=== PATIENT | male | born 1940 | race Caucasian/White ===

== ENCOUNTER 2023-08-13 10:27 | Outpatient (RCR) | payer MEDICARE, SELFPAY ==
[2023-08-13 10:39] LABS: Hematocrit 43.2 % (39.0-52.0); Hemoglobin 12.9 g/dL (13.0-18.0); Mean Corp Hgb Conc. 29.9 g/dL (33.0-37.0); Mean Corpuscular Hgb 19.1 pg (27.0-31.0); Platelet Count 385 10^3/uL (130-400); Red Blood Cell Count 6.75 10^6/uL (4.70-6.10); Red Cell Dist. Width 21.9 % (11.5-14.5); White Blood Cell Count 21.3 10^3/uL (4.8-10.8)
[2023-08-13 13:06] LABS: Absolute Neutrophils -Man Diff 15.5 10^3/uL (1.4-6.5); Band Neutrophils 16 % (0-3); Eosinophils 2 % (0-6); Hypochromasia 1+; Lymphocytes 2 % (20-51); Metamyelocytes 10 % (-); Monocytes 4 % (2-9); Myelocytes 4 % (-); Normal RBC Morphology No; Nucleated Red Blood Cells 4 (-); Platelets Checked Yes; Polychromasia 1+; Promyelocytes 2 % (-); Segmented Neutrophils 57 % (42-75); Toxic Granulation 2+
[2023-08-13 13:07] LABS: Anisocytosis 2+; Ovalocytes 2+
[2023-08-13 13:08] LABS: Acanthocytes FEW; Spherocytes FEW; Total Cells Counted 100
== END 2023-09-10 23:59 | disposition home or self-care (01) ==
LOC: OID 10:27
PROVIDERS: ATTENDING PHYSICIAN Internal Medicine Hematology & Oncology; FAMILY PHYSICIAN Internal Medicine Geriatric Medicine
DX: D45 Polycythemia vera (principal)
CPT/HCPCS: 36415; 85025

== ENCOUNTER → 2023-09-12 12:13 | Outpatient (REF) | payer MEDICARE, SELFPAY ==
[2023-09-12 13:02] LABS: Hematocrit 43.5 % (39.0-52.0); Hemoglobin 12.9 g/dL (13.0-18.0); Mean Corp Hgb Conc. 29.7 g/dL (33.0-37.0); Mean Corpuscular Hgb 19.5 pg (27.0-31.0); Mean Corpuscular Volume 65.9 fL (80.0-94.0); Mean Platelet Volume 9.3 fL (7.4-10.4); Platelet Count 413 10^3/uL (130-400); Red Cell Dist. Width 24.1 % (11.5-14.5); White Blood Cell Count 22.6 10^3/uL (4.8-10.8)
[2023-09-12 13:15] LABS: Blood Urea Nitrogen 23 mg/dl (9-20); Calcium 8.9 mg/dl (8.4-10.2); Carbon Dioxide 24 mmol/L (22-30); Chloride 103 mmol/L (98-107); Glucose 209 mg/dl (70-99); Potassium 4.6 mmol/L (3.5-5.1); Sodium 137 mmol/L (135-145); eGFR > 60.00
[2023-09-12 13:24] LABS: Absolute Neutrophils -Man Diff 19.6 10^3/uL (1.4-6.5); Band Neutrophils 7 % (0-3); Eosinophils 1 % (0-6); Lymphocytes 1 % (20-51); Metamyelocytes 9 % (-); Monocytes 1 % (2-9); Myelocytes 1 % (-); Normal RBC Morphology No; Nucleated Red Blood Cells 3 (-); Platelets Checked Yes; Segmented Neutrophils 80 % (42-75)
[2023-09-12 13:26] LABS: Anisocytosis 1+; Ovalocytes 1+; Polychromasia 1+; Tear Drop Red Blood Cells 1+; Total Cells Counted 100
[2023-09-12 14:02] LABS: Erythrocyte Sed Rate 8 mm/hour (0-20)
[2023-09-12 14:06] LABS: Testosterone, Total < 4.9 ng/dl (72-623)
== END ==
LOC: REG 12:13
PROVIDERS: ATTENDING PHYSICIAN Specialist; FAMILY PHYSICIAN Internal Medicine Geriatric Medicine
DX: C61 Malignant neoplasm of prostate (principal); N20.0 Calculus of kidney; N13.5 Crossing vessel and stricture of ureter without hydronephrosis; R19.7 Diarrhea, unspecified; D72.829 Elevated white blood cell count, unspecified
CPT/HCPCS: 36415; 80048; 84403; 85025; 85652; 86140

== ENCOUNTER → 2023-09-15 12:01 | Outpatient (REF) | payer MEDICARE, SELFPAY ==
[2023-09-18 21:29] LABS: Calprotectin, Fecal 242 ug/g (<=49)
== END ==
LOC: REG 12:01
PROVIDERS: ATTENDING PHYSICIAN Nurse Practitioner Family
DX: R19.7 Diarrhea, unspecified (principal); D72.829 Elevated white blood cell count, unspecified
CPT/HCPCS: 83993

== ENCOUNTER 2023-09-25 10:17 | Outpatient (RCR) | payer MEDICARE, SELFPAY ==
[2023-09-25 10:36] LABS: Hematocrit 46.1 % (39.0-52.0); Hemoglobin 13.6 g/dL (13.0-18.0); Mean Corp Hgb Conc. 29.5 g/dL (33.0-37.0); Mean Corpuscular Hgb 19.4 pg (27.0-31.0); Mean Corpuscular Volume 65.7 fL (80.0-94.0); Mean Platelet Volume 8.5 fL (7.4-10.4); Platelet Count 382 10^3/uL (130-400); Red Blood Cell Count 7.02 10^6/uL (4.70-6.10); Red Cell Dist. Width 23.7 % (11.5-14.5)
[2023-09-25 11:00] VITALS: BP 170/69
[2023-09-25 11:40] VITALS: BP 147/61
[2023-09-25 11:44] VITALS: BP 147/61
[2023-09-25 11:45] VITALS: BP 122/59
[2023-09-25 12:00] LABS: ALT (SGPT) 31 U/L (0-50); AST (SGOT) 42 U/L (17-59); Albumin 4.3 g/dl (3.5-5.0); Alkaline Phosphatase 173 U/L (38-126); Blood Urea Nitrogen 22 mg/dl (9-20); Calcium 9.1 mg/dl (8.4-10.2); Carbon Dioxide 24 mmol/L (22-30); Chloride 104 mmol/L (98-107); Glucose 222 mg/dl (70-99); HDL Cholesterol 29 mg/dl; LDL Cholesterol, Calculated 62 mg/dl; Potassium 4.2 mmol/L (3.5-5.1); Sodium 136 mmol/L (135-145); Total Bilirubin 0.8 mg/dl (0.2-1.3); Total Cholesterol 153 mg/dl (50-199); Total Protein 6.6 g/dl (6.3-8.2); Triglyceride 311 mg/dl (10-149); Very Low Density Lipoprotein 62 mg/dl (0-30); eGFR > 60.00
[2023-09-25 12:12] LABS: Absolute Neutrophils -Man Diff 15.1 10^3/uL (1.4-6.5); Atypical Lymphocytes 3 %; Band Neutrophils 9 % (0-3); Eosinophils 1 % (0-6); Lymphocytes 1 % (20-51); Metamyelocytes 4 % (-); Monocytes 1 % (2-9); Myelocytes 1 % (-); Normal RBC Morphology No; Nucleated Red Blood Cells 1 (-); Platelets Checked Yes; Segmented Neutrophils 80 % (42-75)
[2023-09-25 12:13] LABS: Acanthocytes 1+; Anisocytosis 2+; Hypochromasia 1+; Ovalocytes 2+; Polychromasia 1+; Tear Drop Red Blood Cells 1+
[2023-09-25 12:14] LABS: Total Cells Counted 100
[2023-09-25 12:15] LABS: Vitamin D, 25-OH*** 70.8 ng/mL (30-80)
== END 2023-09-26 11:11 | disposition home or self-care (01) ==
LOC: OID 10:17
PROVIDERS: ATTENDING PHYSICIAN Internal Medicine Hematology & Oncology; FAMILY PHYSICIAN Internal Medicine Geriatric Medicine
DX: D45 Polycythemia vera (principal)
CPT/HCPCS: 36415; 80053; 80061; 82306; 83036; 85025; 99195

== ENCOUNTER → 2023-10-30 06:23 | Day surgery (SDC) | payer MEDICARE, SELFPAY ==
[2023-10-30 07:14] LABS: Glucose - Point of Care 199 mg/dl (70-99)
== END ==
LOC: GI 06:23
PROVIDERS: ATTENDING PHYSICIAN Internal Medicine Gastroenterology
DX: K57.30 Diverticulosis of large intestine without perforation or abscess without bleeding (principal); K62.7 Radiation proctitis; R19.4 Change in bowel habit; R76.8 Other specified abnormal immunological findings in serum; Z92.3 Personal history of irradiation; Z85.46 Personal history of malignant neoplasm of prostate; Y84.2 Radiological procedure and radiotherapy as the cause of abnormal reaction of the patient, or of later complication, without mention of misadventure at the time of the procedure
CPT/HCPCS: 45380; 88305; 82962

== ENCOUNTER 2023-11-06 10:29 | Outpatient (RCR) | payer MEDICARE, SELFPAY ==
[2023-11-06 10:48] LABS: Hemoglobin 12.4 g/dL (13.0-18.0); Mean Corp Hgb Conc. 30.2 g/dL (33.0-37.0); Mean Corpuscular Hgb 19.4 pg (27.0-31.0); Mean Corpuscular Volume 64.2 fL (80.0-94.0); Platelet Count 304 10^3/uL (130-400); Red Blood Cell Count 6.39 10^6/uL (4.70-6.10); Red Cell Dist. Width 22.6 % (11.5-14.5); White Blood Cell Count 18.8 10^3/uL (4.8-10.8)
[2023-11-06 11:48] LABS: Blood Urea Nitrogen 30 mg/dl (9-20); Carbon Dioxide 24 mmol/L (22-30); Chloride 99 mmol/L (98-107); Glucose 340 mg/dl (70-99); Potassium 4.5 mmol/L (3.5-5.1); Sodium 135 mmol/L (135-145); eGFR > 60.00
[2023-11-06 12:35] LABS: Testosterone, Total 5.8 ng/dl (72-623)
[2023-11-06 13:11] LABS: Absolute Neutrophils -Man Diff 15.9 10^3/uL (1.4-6.5); Band Neutrophils 6 % (0-3); Eosinophils 1 % (0-6); Lymphocytes 7 % (20-51); Metamyelocytes 2 % (-); Monocytes 2 % (2-9); Myelocytes 3 % (-); Segmented Neutrophils 79 % (42-75)
[2023-11-06 13:12] LABS: Normal RBC Morphology Yes; Platelets Checked Yes; Total Cells Counted 100
== END 2023-11-09 23:59 | disposition home or self-care (01) ==
LOC: OID 10:29
PROVIDERS: Specialist; ATTENDING PHYSICIAN Internal Medicine Hematology & Oncology; FAMILY PHYSICIAN Internal Medicine Geriatric Medicine
DX: D45 Polycythemia vera (principal)
CPT/HCPCS: 36415; 80048; 84403; 85025

== ENCOUNTER → 2023-11-28 11:58 | Outpatient (REF) | payer MEDICARE, SELFPAY | LOC: RAD 11:58 | PROVIDERS: ATTENDING PHYSICIAN Specialist; FAMILY PHYSICIAN Internal Medicine Geriatric Medicine | DX: N20.0 Calculus of kidney (principal); N13.5 Crossing vessel and stricture of ureter without hydronephrosis | CPT/HCPCS: 74018 ==

== ENCOUNTER 2023-12-18 10:17 | Outpatient (RCR) | payer MEDICARE, SELFPAY ==
[2023-12-18 10:35] LABS: % Basophils 5.5 % (0-2); % Eosinophils 1.1 % (0-6); % Immature Granulocytes 14.7 % (0-0.5); % Lymphocytes 4.4 % (20.5-51.1); % Monocytes 4.5 % (1.7-9.3); % Neutrophils 69.8 % (42.2-75.2); Absolute Basophils 1.3 10^3/uL (0-0.2); Absolute Eosinophils 0.3 10^3/uL (0-0.7); Absolute Immature Granulocytes 3.6 10^3/uL (0-0.05); Absolute Lymphocytes 1.1 10^3/uL (1.2-3.4); Absolute Monocytes 1.1 10^3/uL (0.1-0.6); Absolute Neutrophils 17.1 10^3/uL (1.4-6.5); Hematocrit 42.3 % (39.0-52.0); Hemoglobin 12.8 g/dL (13.0-18.0); Mean Corp Hgb Conc. 30.3 g/dL (33.0-37.0); Mean Corpuscular Hgb 19.2 pg (27.0-31.0); Mean Corpuscular Volume 63.3 fL (80.0-94.0); Platelet Count 361 10^3/uL (130-400); Red Blood Cell Count 6.68 10^6/uL (4.70-6.10); Red Cell Dist. Width 22.6 % (11.5-14.5); White Blood Cell Count 24.4 10^3/uL (4.8-10.8)
[2023-12-18 11:06] LABS: ALT (SGPT) 19 U/L (0-50); AST (SGOT) 35 U/L (17-59); Albumin 4.3 g/dl (3.5-5.0); Alkaline Phosphatase 142 U/L (38-126); Blood Urea Nitrogen 37 mg/dl (9-20); Calcium 9.5 mg/dl (8.4-10.2); Carbon Dioxide 23 mmol/L (22-30); Chloride 107 mmol/L (98-107); Glucose 204 mg/dl (70-99); HDL Cholesterol 28 mg/dl; LDL Cholesterol, Calculated 44 mg/dl; Potassium 4.4 mmol/L (3.5-5.1); Sodium 138 mmol/L (135-145); Total Bilirubin 0.6 mg/dl (0.2-1.3); Total Cholesterol 129 mg/dl (50-199); Total Protein 6.7 g/dl (6.3-8.2); Triglyceride 287 mg/dl (10-149); Very Low Density Lipoprotein 57 mg/dl (0-30); eGFR > 60.00
[2023-12-18 11:17] LABS: Protein/creatinine Ratio 1.8; Urine Protein 90 mg/dl
[2023-12-18 13:20] LABS: Glycohemoglobin (HgbA1c) 8.2 % (4.0-5.6)
== END 2024-01-09 23:59 | disposition home or self-care (01) ==
LOC: OID 10:17
PROVIDERS: ATTENDING PHYSICIAN Internal Medicine Hematology & Oncology; OTHER PHYSICIAN Internal Medicine Geriatric Medicine
DX: D45 Polycythemia vera (principal)
CPT/HCPCS: 36415; 80053; 80061; 82570; 83036; 84156; 85025

== ENCOUNTER 2024-01-29 10:36 | Outpatient (RCR) | payer MEDICARE, SELFPAY ==
[2024-01-29 10:50] LABS: Hematocrit 45.3 % (39.0-52.0); Hemoglobin 13.4 g/dL (13.0-18.0); Mean Corp Hgb Conc. 29.6 g/dL (33.0-37.0); Mean Corpuscular Hgb 18.8 pg (27.0-31.0); Mean Corpuscular Volume 63.4 fL (80.0-94.0); Platelet Count 349 10^3/uL (130-400); Red Blood Cell Count 7.14 10^6/uL (4.70-6.10); Red Cell Dist. Width 23.5 % (11.5-14.5); White Blood Cell Count 23.4 10^3/uL (4.8-10.8)
[2024-01-29 11:10] VITALS: BP 145/64
[2024-01-29 11:40] VITALS: BP 132/69
[2024-01-29 11:45] VITALS: BP 142/66
[2024-01-29 13:32] LABS: Absolute Neutrophils -Man Diff 19.1 10^3/uL (1.4-6.5); Atypical Lymphocytes 3 %; Band Neutrophils 10 % (0-3); Lymphocytes 5 % (20-51); Metamyelocytes 7 % (-); Monocytes 2 % (2-9); Myelocytes 1 % (-); Normal RBC Morphology No; Nucleated Red Blood Cells 3 (-); Platelets Checked Yes; Segmented Neutrophils 72 % (42-75)
[2024-01-29 13:33] LABS: Anisocytosis 1+; Hypochromasia 1+; Ovalocytes 1+; Polychromasia 1+
[2024-01-29 13:34] LABS: Tear Drop Red Blood Cells 1+; Total Cells Counted 100
== END 2024-01-29 15:26 | disposition home or self-care (01) ==
LOC: OID 10:36
PROVIDERS: ATTENDING PHYSICIAN Internal Medicine Hematology & Oncology; OTHER PHYSICIAN Internal Medicine Geriatric Medicine
DX: D45 Polycythemia vera (principal)
CPT/HCPCS: 36415; 85025; 99195

== ENCOUNTER 2024-03-11 10:25 | Outpatient (RCR) | payer MEDICARE, SELFPAY ==
[2024-03-11 11:07] LABS: % Basophils 5.5 % (0-2); % Eosinophils 0.7 % (0-6); % Immature Granulocytes 12.8 % (0-0.5); % Lymphocytes 3.3 % (20.5-51.1); % Monocytes 5.3 % (1.7-9.3); % Neutrophils 72.4 % (42.2-75.2); Absolute Basophils 1.2 10^3/uL (0-0.2); Absolute Eosinophils 0.1 10^3/uL (0-0.7); Absolute Immature Granulocytes 2.7 10^3/uL (0-0.05); Absolute Lymphocytes 0.7 10^3/uL (1.2-3.4); Absolute Monocytes 1.1 10^3/uL (0.1-0.6); Absolute Neutrophils 15.4 10^3/uL (1.4-6.5); Hematocrit 41.5 % (39.0-52.0); Hemoglobin 12.2 g/dL (13.0-18.0); Mean Corp Hgb Conc. 29.4 g/dL (33.0-37.0); Mean Corpuscular Hgb 18.7 pg (27.0-31.0); Mean Corpuscular Volume 63.7 fL (80.0-94.0); Platelet Count 369 10^3/uL (130-400); Red Blood Cell Count 6.52 10^6/uL (4.70-6.10); Red Cell Dist. Width 24.4 % (11.5-14.5); White Blood Cell Count 21.2 10^3/uL (4.8-10.8)
[2024-03-11 12:03] LABS: Urine Albumin 1+ (Neg - Trace); Urine Bilirubin Negative (Negative); Urine Character Clear (Clear); Urine Color Yellow; Urine Glucose 3+ (Negative); Urine Ketone Negative (Negative); Urine Leukocyte Negative (Negative); Urine Nitrite Negative (Negative); Urine Occult Blood Negative (Negative); Urine Urobilinogen Negative (Neg - 1+)
[2024-03-11 12:37] LABS: Urine Red Blood Cell 0-2 /HPF (0-2); Urine Squamous Cell 0-2 /LPF (Few)
[2024-03-11 12:51] LABS: ALT (SGPT) 21 U/L (0-50); AST (SGOT) 34 U/L (17-59); Albumin 4.2 g/dl (3.5-5.0); Alkaline Phosphatase 137 U/L (38-126); Blood Urea Nitrogen 36 mg/dl (9-20); Calcium 9.1 mg/dl (8.4-10.2); Carbon Dioxide 25 mmol/L (22-30); Chloride 102 mmol/L (98-107); Glucose 180 mg/dl (70-99); HDL Cholesterol 27 mg/dl; LDL Cholesterol, Calculated 61 mg/dl; Potassium 4.6 mmol/L (3.5-5.1); Sodium 136 mmol/L (135-145); Total Bilirubin 0.7 mg/dl (0.2-1.3); Total Cholesterol 146 mg/dl (50-199); Total Protein 6.5 g/dl (6.3-8.2); Triglyceride 290 mg/dl (10-149); Very Low Density Lipoprotein 58 mg/dl (0-30); eGFR > 60.00
[2024-03-11 13:07] LABS: Vitamin D, 25-OH*** 62.3 ng/mL (30-80)
[2024-03-11 13:26] LABS: Glycohemoglobin (HgbA1c) 7.6 % (4.0-5.6)
[2024-03-11 17:54] LABS: Microalbumin, Random Urine 48.6 mg/dl (0.6-1.7); Microalbumin/creatinine Ratio 927.5 mg/g
== END 2024-03-12 09:25 | disposition home or self-care (01) ==
LOC: OID 10:25
PROVIDERS: ATTENDING PHYSICIAN Internal Medicine Hematology & Oncology; OTHER PHYSICIAN Internal Medicine Geriatric Medicine
DX: D45 Polycythemia vera (principal)
CPT/HCPCS: 36415; 80053; 80061; 81003; 81015; 82043; 82306; 82570; 83036; 84681; 85025

== ENCOUNTER 2024-04-21 10:24 | Outpatient (RCR) | payer MEDICARE, SELFPAY ==
[2024-04-21 11:36] LABS: Hematocrit 39.5 % (39.0-52.0); Hemoglobin 11.6 g/dL (13.0-18.0); Mean Corp Hgb Conc. 29.4 g/dL (33.0-37.0); Mean Corpuscular Volume 64.5 fL (80.0-94.0); Mean Platelet Volume 9.2 fL (7.4-10.4); Platelet Count 487 10^3/uL (130-400); Red Blood Cell Count 6.12 10^6/uL (4.70-6.10); Red Cell Dist. Width 25.2 % (11.5-14.5)
[2024-04-21 12:16] LABS: Absolute Neutrophils -Man Diff 17.4 10^3/uL (1.4-6.5); Band Neutrophils 10 % (0-3); Lymphocytes 2 % (20-51); Monocytes 3 % (2-9); Nucleated Red Blood Cells % 1.5 % (-); Segmented Neutrophils 73 % (42-75)
[2024-04-21 12:17] LABS: Anisocytosis 2+; Eosinophils 1 % (0-6); Metamyelocytes 3 % (-); Microcytosis 2+; Myelocytes 7 % (-); Normal RBC Morphology No; Platelets Checked Yes
[2024-04-21 12:18] LABS: Ovalocytes 2+; Tear Drop Red Blood Cells 1+
[2024-04-21 12:20] LABS: Polychromasia 1+; Total Cells Counted 100
== END 2024-05-10 23:59 | disposition home or self-care (01) ==
LOC: OID 10:24
PROVIDERS: ATTENDING PHYSICIAN Internal Medicine Hematology & Oncology; OTHER PHYSICIAN Internal Medicine Geriatric Medicine
DX: D45 Polycythemia vera (principal)
CPT/HCPCS: 36415; 85025

== ENCOUNTER → 2024-04-21 11:18 | Outpatient (REF) | payer MEDICARE, SELFPAY | LOC: RAD 11:18 | PROVIDERS: ATTENDING PHYSICIAN Nurse Practitioner Adult Health; FAMILY PHYSICIAN Internal Medicine Geriatric Medicine | DX: J41.1 Mucopurulent chronic bronchitis (principal) | CPT/HCPCS: 71046 ==

== ENCOUNTER 2024-06-02 10:23 | Outpatient (RCR) | payer MEDICARE, SELFPAY ==
[2024-06-02 10:33] LABS: % Basophils 5.6 % (0-2); % Eosinophils 1.3 % (0-6); % Lymphocytes 4.3 % (20.5-51.1); % Monocytes 6.3 % (1.7-9.3); % Neutrophils 68.5 % (42.2-75.2); Absolute Basophils 1.2 10^3/uL (0-0.2); Absolute Eosinophils 0.3 10^3/uL (0-0.7); Absolute Immature Granulocytes 3.1 10^3/uL (0-0.05); Absolute Lymphocytes 0.9 10^3/uL (1.2-3.4); Absolute Monocytes 1.4 10^3/uL (0.1-0.6); Absolute Neutrophils 14.9 10^3/uL (1.4-6.5); Hematocrit 38.4 % (39.0-52.0); Hemoglobin 11.3 g/dL (13.0-18.0); Mean Corp Hgb Conc. 29.4 g/dL (33.0-37.0); Mean Corpuscular Hgb 18.9 pg (27.0-31.0); Mean Corpuscular Volume 64.1 fL (80.0-94.0); Platelet Count 405 10^3/uL (130-400); Red Blood Cell Count 5.99 10^6/uL (4.70-6.10); Red Cell Dist. Width 23.1 % (11.5-14.5); White Blood Cell Count 21.8 10^3/uL (4.8-10.8)
== END 2024-06-10 23:59 | disposition home or self-care (01) ==
LOC: OID 10:23
PROVIDERS: ATTENDING PHYSICIAN Internal Medicine Hematology & Oncology; OTHER PHYSICIAN Internal Medicine Geriatric Medicine
DX: D45 Polycythemia vera (principal)
CPT/HCPCS: 36415; 85025

== ENCOUNTER 2024-07-15 10:28 | Outpatient (RCR) | payer MEDICARE, SELFPAY ==
[2024-07-15 11:08] LABS: Hematocrit 44.4 % (39.0-52.0); Hemoglobin 12.5 g/dL (13.0-18.0); Mean Corp Hgb Conc. 28.2 g/dL (33.0-37.0); Mean Corpuscular Volume 63.8 fL (80.0-94.0); Platelet Count 498 10^3/uL (130-400); Red Blood Cell Count 6.96 10^6/uL (4.70-6.10); Red Cell Dist. Width 23.5 % (11.5-14.5); White Blood Cell Count 26.3 10^3/uL (4.8-10.8)
[2024-07-15 12:34] LABS: Absolute Neutrophils -Man Diff 22.8 10^3/uL (1.4-6.5); Atypical Lymphocytes 3 %; Band Neutrophils 10 % (0-3); Lymphocytes 4 % (20-51); Metamyelocytes 2 % (-); Monocytes 2 % (2-9); Myelocytes 2 % (-); Normal RBC Morphology No; Nucleated Red Blood Cells 4 (-); Platelets Checked Yes; Segmented Neutrophils 77 % (42-75)
[2024-07-15 12:35] LABS: Anisocytosis 1+; Hypochromasia Slight; Ovalocytes 2+; Polychromasia Slight; Total Cells Counted 100
== END 2024-08-10 23:59 | disposition home or self-care (01) ==
LOC: OID 10:28
PROVIDERS: ATTENDING PHYSICIAN Internal Medicine Hematology & Oncology; OTHER PHYSICIAN Internal Medicine Geriatric Medicine
DX: D45 Polycythemia vera (principal)
CPT/HCPCS: 85025

== ENCOUNTER 2024-08-26 10:29 | Outpatient (RCR) | payer MEDICARE, SELFPAY ==
[2024-08-26 10:52] LABS: % Basophils 5.5 % (0-2); % Eosinophils 1.2 % (0-6); % Immature Granulocytes 15.2 % (0-0.5); % Lymphocytes 4.5 % (20.5-51.1); % Monocytes 6.2 % (1.7-9.3); % Neutrophils 67.4 % (42.2-75.2); Absolute Basophils 1.4 10^3/uL (0-0.2); Absolute Eosinophils 0.3 10^3/uL (0-0.7); Absolute Immature Granulocytes 3.8 10^3/uL (0-0.05); Absolute Lymphocytes 1.1 10^3/uL (1.2-3.4); Absolute Monocytes 1.6 10^3/uL (0.1-0.6); Absolute Neutrophils 16.9 10^3/uL (1.4-6.5); Hematocrit 42.5 % (39.0-52.0); Hemoglobin 12.5 g/dL (13.0-18.0); Mean Corp Hgb Conc. 29.4 g/dL (33.0-37.0); Mean Corpuscular Hgb 18.3 pg (27.0-31.0); Mean Corpuscular Volume 62.3 fL (80.0-94.0); Platelet Count 433 10^3/uL (130-400); Red Blood Cell Count 6.82 10^6/uL (4.70-6.10); Red Cell Dist. Width 24.5 % (11.5-14.5); White Blood Cell Count 25.1 10^3/uL (4.8-10.8)
[2024-08-26 11:18] LABS: Urine Albumin 2+ (Neg - Trace); Urine Bilirubin Negative (Negative); Urine Character Clear (Clear); Urine Color Yellow; Urine Glucose 3+ (Negative); Urine Ketone Negative (Negative); Urine Leukocyte Trace (Negative); Urine Nitrite Negative (Negative); Urine Occult Blood 2+ (Negative); Urine Specific Gravity 1.015 (<1.030); Urine Urobilinogen Negative (Neg - 1+)
[2024-08-26 11:30] LABS: ALT (SGPT) 20 U/L (0-50); AST (SGOT) 35 U/L (17-59); Albumin 4.3 g/dl (3.5-5.0); Alkaline Phosphatase 187 U/L (38-126); Blood Urea Nitrogen 42 mg/dl (9-20); Calcium 9.2 mg/dl (8.4-10.2); Carbon Dioxide 21 mmol/L (22-30); Chloride 105 mmol/L (98-107); Glucose 300 mg/dl (70-99); HDL Cholesterol 27 mg/dl; LDL Cholesterol, Calculated 64 mg/dl; Potassium 5.1 mmol/L (3.5-5.1); Sodium 138 mmol/L (135-145); Total Bilirubin 0.6 mg/dl (0.2-1.3); Total Cholesterol 167 mg/dl (50-199); Total Protein 6.6 g/dl (6.3-8.2); Triglyceride 383 mg/dl (10-149); Very Low Density Lipoprotein 76 mg/dl (0-30); eGFR > 60.00
[2024-08-26 11:47] LABS: Vitamin D, 25-OH*** 60.8 ng/mL (30-80)
[2024-08-26 11:51] LABS: Glycohemoglobin (HgbA1c) 6.9 % (4.0-5.6); Urine Mucus Few
[2024-08-26 11:53] LABS: Urine Squamous Cell 0-2 /LPF (Few)
[2024-08-26 11:54] LABS: Urine Amorphous Seen
[2024-08-26 11:55] LABS: Urine Red Blood Cell 16-20 /HPF (0-2)
[2024-08-26 11:56] LABS: Urine Granular Cast 0-2 /LPF (0)
[2024-08-26 14:49] LABS: Microalbumin, Random Urine > 57.0 mg/dl (0.6-1.7); Microalbumin/creatinine Ratio 1328.7 mg/g
== END 2024-09-10 23:59 | disposition home or self-care (01) ==
LOC: OID 10:29
PROVIDERS: ATTENDING PHYSICIAN Internal Medicine Hematology & Oncology; OTHER PHYSICIAN Internal Medicine Geriatric Medicine
DX: D45 Polycythemia vera (principal)
CPT/HCPCS: 36415; 80053; 80061; 81003; 81015; 82043; 82306; 82570; 83036; 85025

== ENCOUNTER → 2024-09-29 10:22 | Outpatient (REF) | payer MEDICARE, SELFPAY | LOC: RAD 10:22 | PROVIDERS: ATTENDING PHYSICIAN Nurse Practitioner Adult Health; FAMILY PHYSICIAN Internal Medicine Geriatric Medicine | DX: R22.42 Localized swelling, mass and lump, left lower limb (principal) | CPT/HCPCS: 93970 ==

== ENCOUNTER 2024-10-07 13:40 | Outpatient (RCR) | payer MEDICARE, SELFPAY ==
[2024-10-07 15:09] LABS: % Basophils 3.8 % (0-2); % Eosinophils 1.3 % (0-6); % Immature Granulocytes 17.5 % (0-0.5); % Lymphocytes 4.5 % (20.5-51.1); % Monocytes 4.7 % (1.7-9.3); % Neutrophils 68.2 % (42.2-75.2); Absolute Eosinophils 0.4 10^3/uL (0-0.7); Absolute Immature Granulocytes 4.7 10^3/uL (0-0.05); Absolute Lymphocytes 1.2 10^3/uL (1.2-3.4); Absolute Monocytes 1.3 10^3/uL (0.1-0.6); Absolute Neutrophils 18.3 10^3/uL (1.4-6.5); Hematocrit 43.9 % (39.0-52.0); Hemoglobin 12.6 g/dL (13.0-18.0); Mean Corp Hgb Conc. 28.7 g/dL (33.0-37.0); Mean Corpuscular Hgb 18.8 pg (27.0-31.0); Mean Corpuscular Volume 65.4 fL (80.0-94.0); Mean Platelet Volume 8.5 fL (7.4-10.4); Nucleated Red Blood Cells % 2.2 % (-); Platelet Count 574 10^3/uL (130-400); Red Blood Cell Count 6.71 10^6/uL (4.70-6.10); White Blood Cell Count 26.8 10^3/uL (4.8-10.8)
[2024-10-07 15:13] LABS: Absolute Neutrophils -Man Diff 19.5 10^3/uL (1.4-6.5); Band Neutrophils 9 % (0-3); Lymphocytes 5 % (20-51); Metamyelocytes 11 % (-); Monocytes 4 % (2-9); Segmented Neutrophils 64 % (42-75)
[2024-10-07 15:15] LABS: Myelocytes 6 % (-)
[2024-10-07 15:16] LABS: Anisocytosis 2+; Hypochromasia 1+; Microcytosis Slight; Normal RBC Morphology No; Platelets Checked Yes; Polychromasia Slight
[2024-10-07 15:17] LABS: Ovalocytes 1+; Poikilocytosis Slight; Tear Drop Red Blood Cells Slight; Total Cells Counted 100
== END 2024-10-08 09:06 | disposition home or self-care (01) ==
LOC: OID 13:40
PROVIDERS: ATTENDING PHYSICIAN Internal Medicine Hematology & Oncology; OTHER PHYSICIAN Internal Medicine Geriatric Medicine
DX: D45 Polycythemia vera (principal)
CPT/HCPCS: 36415; 85025

== ENCOUNTER → 2024-11-17 09:54 | Outpatient (REF) | payer MEDICARE, SELFPAY ==
[2024-11-17 11:14] LABS: Hematocrit 41.3 % (39.0-52.0); Hemoglobin 11.9 g/dL (13.0-18.0); Mean Corp Hgb Conc. 28.8 g/dL (33.0-37.0); Mean Corpuscular Hgb 18.9 pg (27.0-31.0); Mean Corpuscular Volume 65.5 fL (80.0-94.0); Mean Platelet Volume 8.9 fL (7.4-10.4); Platelet Count 548 10^3/uL (130-400); Red Blood Cell Count 6.31 10^6/uL (4.70-6.10); White Blood Cell Count 28.9 10^3/uL (4.8-10.8)
[2024-11-17 11:24] LABS: ALT (SGPT) 42 U/L (0-50); AST (SGOT) 47 U/L (17-59); Alkaline Phosphatase 243 U/L (38-126); Blood Urea Nitrogen 33 mg/dl (9-20); Calcium 9.2 mg/dl (8.4-10.2); Carbon Dioxide 25 mmol/L (22-30); Chloride 111 mmol/L (98-107); Glucose 161 mg/dl (70-99); HDL Cholesterol 31 mg/dl; LDL Cholesterol, Calculated 78 mg/dl; Potassium 5.1 mmol/L (3.5-5.1); Sodium 142 mmol/L (135-145); Total Bilirubin 0.9 mg/dl (0.2-1.3); Total Cholesterol 148 mg/dl (50-199); Total Protein 6.3 g/dl (6.3-8.2); Triglyceride 195 mg/dl (10-149); Very Low Density Lipoprotein 39 mg/dl (0-30); eGFR > 60.00
[2024-11-17 11:26] LABS: NT-proBNP 5810 pg/ml
[2024-11-17 11:49] LABS: PSA, Total - Diagnostic < 0.06 ng/ml (0.0-4.0)
[2024-11-17 11:51] LABS: Testosterone, Total < 4.9 ng/dl (72-623)
[2024-11-17 12:03] LABS: Band Neutrophils 9 % (0-3); Lymphocytes 3 % (20-51); Monocytes 2 % (2-9); Segmented Neutrophils 64 % (42-75)
[2024-11-17 12:04] LABS: Atypical Lymphocytes 1 %; Metamyelocytes 7 % (-); Myelocytes 10 % (-); Platelets Checked Yes
[2024-11-17 12:05] LABS: Anisocytosis 2+; Hypochromasia 2+; Normal RBC Morphology No; Ovalocytes 2+; Polychromasia 1+
[2024-11-17 12:06] LABS: Total Cells Counted 100
== END ==
LOC: REG 09:54
PROVIDERS: ATTENDING PHYSICIAN Specialist; FAMILY PHYSICIAN Internal Medicine Geriatric Medicine; REFERRING PHYSICIAN Internal Medicine Cardiovascular Disease
DX: I10 Essential (primary) hypertension (principal); E78.2 Mixed hyperlipidemia; E11.9 Type 2 diabetes mellitus without complications; R53.83 Other fatigue; R63.4 Abnormal weight loss; C61 Malignant neoplasm of prostate; D72.829 Elevated white blood cell count, unspecified; N20.0 Calculus of kidney; R06.09 Other forms of dyspnea; J18.9 Pneumonia, unspecified organism; Z13.89 Encounter for screening for other disorder; J20.9 Acute bronchitis, unspecified; B02.29 Other postherpetic nervous system involvement; N13.5 Crossing vessel and stricture of ureter without hydronephrosis
CPT/HCPCS: 36415; 74018; 80053; 80061; 83880; 84153; 84403; 85025

== ENCOUNTER 2024-11-18 13:33 | Outpatient (RCR) | payer MEDICARE, SELFPAY ==
[2024-11-18 15:45] LABS: Hematocrit 40.5 % (39.0-52.0); Hemoglobin 11.9 g/dL (13.0-18.0); Mean Corp Hgb Conc. 29.4 g/dL (33.0-37.0); Mean Corpuscular Hgb 19.1 pg (27.0-31.0); Mean Corpuscular Volume 64.9 fL (80.0-94.0); Mean Platelet Volume 8.8 fL (7.4-10.4); Platelet Count 555 10^3/uL (130-400); Red Blood Cell Count 6.24 10^6/uL (4.70-6.10); Red Cell Dist. Width 23.9 % (11.5-14.5); White Blood Cell Count 29.3 10^3/uL (4.8-10.8)
[2024-11-18 15:48] LABS: Band Neutrophils 2 % (0-3); Eosinophils 1 % (0-6); Lymphocytes 2 % (20-51); Monocytes 4 % (2-9); Myelocytes 18 % (-); Normal RBC Morphology No; Nucleated Red Blood Cells 2 (-); Platelets Checked Yes
[2024-11-18 15:49] LABS: Anisocytosis 2+
[2024-11-18 15:50] LABS: Macrocytosis 1+
[2024-11-18 15:51] LABS: Tear Drop Red Blood Cells Slight
[2024-11-18 15:52] LABS: Microcytosis 2+; Polychromasia 1+
[2024-11-18 15:53] LABS: Total Cells Counted 100
[2024-11-18 15:55] LABS: Absolute Neutrophils -Man Diff 20.2 10^3/uL (1.4-6.5); Segmented Neutrophils 67 % (42-75)
== END 2024-12-08 23:59 | disposition home or self-care (01) ==
LOC: OID 13:33
PROVIDERS: ATTENDING PHYSICIAN Internal Medicine Hematology & Oncology; OTHER PHYSICIAN Internal Medicine Geriatric Medicine
DX: D45 Polycythemia vera (principal)
CPT/HCPCS: 36415; 85025

== ENCOUNTER → 2024-12-08 13:18 | Outpatient (REF) | payer MEDICARE, SELFPAY | LOC: RCS 13:18 | PROVIDERS: ATTENDING PHYSICIAN Internal Medicine Cardiovascular Disease; FAMILY PHYSICIAN Internal Medicine Geriatric Medicine | DX: I25.10 Atherosclerotic heart disease of native coronary artery without angina pectoris (principal) | CPT/HCPCS: 93306 ==

== ENCOUNTER 2024-12-30 13:33 | Outpatient (RCR) | payer MEDICARE, SELFPAY ==
[2024-12-30 14:18] LABS: % Basophils 4.4 % (0-2); % Eosinophils 1.3 % (0-6); % Immature Granulocytes 18.3 % (0-0.5); % Lymphocytes 4.9 % (20.5-51.1); % Monocytes 6.2 % (1.7-9.3); % Neutrophils 64.9 % (42.2-75.2); Absolute Basophils 1.1 10^3/uL (0-0.2); Absolute Eosinophils 0.3 10^3/uL (0-0.7); Absolute Immature Granulocytes 4.6 10^3/uL (0-0.05); Absolute Lymphocytes 1.2 10^3/uL (1.2-3.4); Absolute Monocytes 1.6 10^3/uL (0.1-0.6); Absolute Neutrophils 16.5 10^3/uL (1.4-6.5); Hematocrit 39.4 % (39.0-52.0); Hemoglobin 11.5 g/dL (13.0-18.0); Mean Corp Hgb Conc. 29.2 g/dL (33.0-37.0); Mean Corpuscular Hgb 18.7 pg (27.0-31.0); Mean Corpuscular Volume 64.2 fL (80.0-94.0); Mean Platelet Volume 8.5 fL (7.4-10.4); Platelet Count 533 10^3/uL (130-400); Red Blood Cell Count 6.14 10^6/uL (4.70-6.10); Red Cell Dist. Width 23.6 % (11.5-14.5); White Blood Cell Count 25.4 10^3/uL (4.8-10.8)
[2024-12-30 16:07] LABS: Blood Urea Nitrogen 27 mg/dl (9-20); Calcium 8.7 mg/dl (8.4-10.2); Carbon Dioxide 24 mmol/L (22-30); Chloride 111 mmol/L (98-107); Glucose 139 mg/dl (70-99); Phosphorus 3.7 mg/dl (2.5-4.5); Potassium 3.8 mmol/L (3.5-5.1); Sodium 144 mmol/L (135-145); eGFR > 60.00
[2024-12-30 17:01] LABS: NT-proBNP 11900 pg/ml
== END 2025-01-08 23:59 | disposition home or self-care (01) ==
LOC: OID 13:33
PROVIDERS: ATTENDING PHYSICIAN Internal Medicine Hematology & Oncology; OTHER PHYSICIAN Internal Medicine Geriatric Medicine
DX: D45 Polycythemia vera (principal)
CPT/HCPCS: 36415; 80069; 83880; 85025

== ENCOUNTER → 2025-01-17 14:19 | Outpatient (REF) | payer MEDICARE, SELFPAY ==
[2025-01-17 15:13] LABS: Blood Urea Nitrogen 40 mg/dl (9-20); Calcium 9.5 mg/dl (8.4-10.2); Carbon Dioxide 27 mmol/L (22-30); Chloride 106 mmol/L (98-107); Glucose 119 mg/dl (70-99); Potassium 5.2 mmol/L (3.5-5.1); Sodium 142 mmol/L (135-145); eGFR > 60.00
== END ==
LOC: REG 14:19
PROVIDERS: ATTENDING PHYSICIAN Internal Medicine Cardiovascular Disease; FAMILY PHYSICIAN Internal Medicine Geriatric Medicine
DX: I10 Essential (primary) hypertension (principal); R06.09 Other forms of dyspnea
CPT/HCPCS: 36415; 80048

== ENCOUNTER 2025-02-09 10:31 | Outpatient (RCR) | payer MEDICARE, SELFPAY ==
[2025-02-09 11:31] LABS: Blood Urea Nitrogen 40 mg/dl (9-20); Calcium 9.0 mg/dl (8.4-10.2); Carbon Dioxide 18 mmol/L (22-30); Chloride 113 mmol/L (98-107); Glucose 186 mg/dl (70-99); Potassium 4.9 mmol/L (3.5-5.1); Sodium 142 mmol/L (135-145); eGFR > 60.00
[2025-02-09 11:58] LABS: Hematocrit 41.7 % (39.0-52.0); Hemoglobin 12.0 g/dL (13.0-18.0); Mean Corp Hgb Conc. 28.8 g/dL (33.0-37.0); Mean Corpuscular Volume 66.4 fL (80.0-94.0)
[2025-02-09 11:59] LABS: Absolute Neutrophils -Man Diff 21.0 10^3/uL (1.4-6.5); Anisocytosis Slight; Normal RBC Morphology No; Platelet Count 511 10^3/uL (130-400); Platelets Checked Yes; Red Cell Dist. Width 24.7 % (11.5-14.5)
[2025-02-09 12:00] LABS: Ovalocytes Slight; Polychromasia 1+; Tear Drop Red Blood Cells Slight; Total Cells Counted 100
[2025-02-09 13:02] LABS: Glycohemoglobin (HgbA1c) 6.1 % (4.0-5.6)
== END 2025-03-10 23:59 | disposition home or self-care (01) ==
LOC: OID 10:31
PROVIDERS: ATTENDING PHYSICIAN Internal Medicine Hematology & Oncology; OTHER PHYSICIAN Internal Medicine Geriatric Medicine; REFERRING PHYSICIAN Physician Assistant Medical
DX: D45 Polycythemia vera (principal); E11.9 Type 2 diabetes mellitus without complications; J47.9 Bronchiectasis, uncomplicated; I10 Essential (primary) hypertension; R53.83 Other fatigue; E78.2 Mixed hyperlipidemia; R63.4 Abnormal weight loss; C61 Malignant neoplasm of prostate; D72.829 Elevated white blood cell count, unspecified; N20.0 Calculus of kidney; R06.09 Other forms of dyspnea; J20.9 Acute bronchitis, unspecified; B02.29 Other postherpetic nervous system involvement; I51.9 Heart disease, unspecified; I50.32 Chronic diastolic (congestive) heart failure
CPT/HCPCS: 36415; 80048; 83036; 83880; 85025

== ENCOUNTER 2025-03-16 10:38 | Outpatient (RCR) | payer MEDICARE, SELFPAY ==
[2025-03-16 12:48] LABS: Hematocrit 38.9 % (39.0-52.0); Hemoglobin 11.4 g/dL (13.0-18.0); Mean Corp Hgb Conc. 29.3 g/dL (33.0-37.0); Mean Corpuscular Volume 66.3 fL (80.0-94.0); Platelet Count 566 10^3/uL (130-400); Red Cell Dist. Width 23.0 % (11.5-14.5)
[2025-03-16 12:49] LABS: Blood Urea Nitrogen 38 mg/dl (9-20); Calcium 8.8 mg/dl (8.4-10.2); Carbon Dioxide 20 mmol/L (22-30); Chloride 112 mmol/L (98-107); Glucose 173 mg/dl (70-99); Potassium 5.0 mmol/L (3.5-5.1); Sodium 142 mmol/L (135-145); eGFR > 60.00
[2025-03-16 13:43] LABS: Absolute Neutrophils -Man Diff 19.3 10^3/uL (1.4-6.5)
[2025-03-16 13:44] LABS: Anisocytosis 1+; Normal RBC Morphology No; Ovalocytes 1+; Platelets Checked Yes; Total Cells Counted 100
== END 2025-04-10 23:59 | disposition home or self-care (01) ==
LOC: OID 10:38
PROVIDERS: ATTENDING PHYSICIAN Internal Medicine Hematology & Oncology; OTHER PHYSICIAN Internal Medicine Cardiovascular Disease; OTHER PHYSICIAN Internal Medicine Geriatric Medicine; REFERRING PHYSICIAN Physician Assistant Medical
DX: D45 Polycythemia vera (principal); E11.9 Type 2 diabetes mellitus without complications; J47.9 Bronchiectasis, uncomplicated; I10 Essential (primary) hypertension; R53.83 Other fatigue; E78.2 Mixed hyperlipidemia; R63.4 Abnormal weight loss; C61 Malignant neoplasm of prostate; D72.829 Elevated white blood cell count, unspecified; N20.0 Calculus of kidney; R06.09 Other forms of dyspnea; J20.9 Acute bronchitis, unspecified; B02.29 Other postherpetic nervous system involvement; I51.9 Heart disease, unspecified; I50.32 Chronic diastolic (congestive) heart failure
CPT/HCPCS: 36415; 80048; 83880; 85025

== ENCOUNTER → 2025-04-15 09:33 | Outpatient (REF) | payer MEDICARE, SELFPAY ==
[2025-04-15 10:41] LABS: Hematocrit 40.3 % (39.0-52.0); Hemoglobin 11.3 g/dL (13.0-18.0); Mean Corp Hgb Conc. 28.0 g/dL (33.0-37.0); Mean Corpuscular Volume 68.8 fL (80.0-94.0); Platelet Count 482 10^3/uL (130-400); Red Cell Dist. Width 25.0 % (11.5-14.5)
[2025-04-15 11:04] LABS: ALT (SGPT) 31 U/L (0-50); AST (SGOT) 42 U/L (17-59); Albumin 3.9 g/dl (3.5-5.0); Alkaline Phosphatase 202 U/L (38-126); Blood Urea Nitrogen 34 mg/dl (9-20); Calcium 9.1 mg/dl (8.4-10.2); Carbon Dioxide 24 mmol/L (22-30); Chloride 107 mmol/L (98-107); Glucose 207 mg/dl (70-99); Potassium 4.3 mmol/L (3.5-5.1); Sodium 140 mmol/L (135-145); Total Protein 6.3 g/dl (6.3-8.2); eGFR > 60.00
[2025-04-15 12:28] LABS: Absolute Neutrophils -Man Diff 19.6 10^3/uL (1.4-6.5)
[2025-04-15 12:30] LABS: Acanthocytes Slight; Anisocytosis 1+; Hypochromasia Slight; Normal RBC Morphology No; Ovalocytes Slight; Platelets Checked Yes; Total Cells Counted 100
== END ==
LOC: REG 09:33
PROVIDERS: ATTENDING PHYSICIAN Internal Medicine Cardiovascular Disease; FAMILY PHYSICIAN Internal Medicine Geriatric Medicine
DX: E11.9 Type 2 diabetes mellitus without complications (principal); I10 Essential (primary) hypertension; R53.83 Other fatigue; E78.2 Mixed hyperlipidemia; R63.4 Abnormal weight loss; C61 Malignant neoplasm of prostate; D72.829 Elevated white blood cell count, unspecified; N20.0 Calculus of kidney; R06.09 Other forms of dyspnea; Z13.89 Encounter for screening for other disorder; J20.9 Acute bronchitis, unspecified; I50.32 Chronic diastolic (congestive) heart failure
CPT/HCPCS: 36415; 80053; 83880; 85025

== ENCOUNTER 2025-04-27 13:54 | Outpatient (RCR) | payer MEDICARE, SELFPAY ==
[2025-04-27 14:06] LABS: Hematocrit 40.9 % (39.0-52.0); Hemoglobin 12.4 g/dL (13.0-18.0); Mean Corp Hgb Conc. 30.3 g/dL (33.0-37.0); Mean Corpuscular Volume 67.9 fL (80.0-94.0); Platelet Count 463 10^3/uL (130-400); Red Cell Dist. Width 25.5 % (11.5-14.5)
== END 2025-05-10 23:59 | disposition home or self-care (01) ==
LOC: OID 13:54
PROVIDERS: ATTENDING PHYSICIAN Internal Medicine Hematology & Oncology; OTHER PHYSICIAN Internal Medicine Cardiovascular Disease; OTHER PHYSICIAN Internal Medicine Geriatric Medicine; REFERRING PHYSICIAN Physician Assistant Medical
DX: D45 Polycythemia vera (principal); E11.9 Type 2 diabetes mellitus without complications; J47.9 Bronchiectasis, uncomplicated; I10 Essential (primary) hypertension; R53.83 Other fatigue; E78.2 Mixed hyperlipidemia; R63.4 Abnormal weight loss; C61 Malignant neoplasm of prostate; D72.829 Elevated white blood cell count, unspecified; N20.0 Calculus of kidney; R06.09 Other forms of dyspnea; J20.9 Acute bronchitis, unspecified; B02.29 Other postherpetic nervous system involvement; I51.9 Heart disease, unspecified; I50.32 Chronic diastolic (congestive) heart failure
CPT/HCPCS: 36415; 85025